=== PATIENT | female | born 1940 | race Caucasian/White ===

== ENCOUNTER 2024-06-15 04:04 | Day surgery (SDC) | payer OTHER ==
[2024-06-14 09:36] VITALS: BMI 32.1
[2024-06-15] MEDS ORDERED: LIDOCAINE HCL/PF 1% SDV 5ML VIAL ONE (07:09)
[2024-06-15] MEDS ORDERED: DEXAMETHASONE SOD PHOSPHATE 10 MG/1 ML VIAL ONE (07:09)
[2024-06-15 08:56] VITALS: TEMP 98
[2024-06-15] MEDS ORDERED: ACETAMINOPHEN 500 MG TABLET (FP) PO PRN (09:09)
[2024-06-15] MEDS: DEXAMETHASONE SOD PHOSPHATE 10 MG/1 ML VIAL IVPUSH ONE ×2 (10:31)
[2024-06-15] MEDS: IOHEXOL 180 MG/1 ML ML IJ ONE ×3 (10:31)
[2024-06-15] MEDS: LIDOCAINE HCL 1% PRESERVATIVE FREE - 30ML VIAL IJ ONE ×3 (10:31)
[2024-06-15 11:18] VITALS: BP 136/85; PULSE 75; RESP 20
== END 2024-06-15 11:46 | disposition home or self-care (01) ==
LOC: JASU-SURG 04:04
PROVIDERS: ATTEND Pain Medicine Pain Medicine
PROC: 3E0R3BZ Introduction of Anesthetic Agent into Spinal Canal, Percutaneous Approach (ICD-10-PCS; 2024-06-15)
PROC: 3E0R33Z Introduction of Anti-inflammatory into Spinal Canal, Percutaneous Approach (ICD-10-PCS; principal; 2024-06-15 10:15)
DX: M54.16 Radiculopathy, lumbar region (principal)
CPT/HCPCS: 76000-TC-FY; J1100

== ENCOUNTER 2024-09-07 04:22 | Day surgery (SDC) | payer OTHER ==
[2024-09-01 10:49] VITALS: BMI 32.1
[2024-09-07] MEDS ORDERED: ACETAMINOPHEN 500 MG TABLET (FP) PO PRN (08:36)
[2024-09-07 10:30] VITALS: RESP 20
[2024-09-07] MEDS: LIDOCAINE HCL 1% PRESERVATIVE FREE - 30ML VIAL IJ ONE ×3 (11:34)
[2024-09-07] MEDS: IOHEXOL 180 MG/1 ML ML IJ ONE ×2 (11:40)
[2024-09-07] MEDS: DEXAMETHASONE SOD PHOSPHATE 10 MG/1 ML VIAL IVPUSH ONE ×4 (11:44→11:48)
[2024-09-07 12:01] VITALS: BP 126/55; PULSE 71; TEMP 97.7
== END 2024-09-07 13:11 | disposition home or self-care (01) ==
LOC: JASU-SURG 04:22
PROVIDERS: ATTEND Pain Medicine Pain Medicine
PROC: 3E0R3BZ Introduction of Anesthetic Agent into Spinal Canal, Percutaneous Approach (ICD-10-PCS; 2024-09-07)
PROC: 3E0R33Z Introduction of Anti-inflammatory into Spinal Canal, Percutaneous Approach (ICD-10-PCS; principal; 2024-09-07 11:15)
DX: M54.16 Radiculopathy, lumbar region (principal)
CPT/HCPCS: 76000-TC-FY; J1100